=== PATIENT | female | born 1960 | race Caucasian/White ===

== ENCOUNTER 2020-07-02 13:25 | Emergency (ER) | payer OTHER ==
--- NOTE | 2020-07-02 13:54 | EDM.PDOC ---
ED HPI GENERAL MEDICAL PROBLEM - General Chief Complaint: Skin Complaint Stated Complaint: INFECTION INCISION Time Seen by Provider: 07/02/20 13:27 Source of Information: Reports: Patient History Limitations: Reports: No Limitations - History of Present Illness INITIAL COMMENTS - FREE TEXT/NARRATIVE: HISTORY AND PHYSICAL: History of present illness: The patient is a 60-year-old female who presents to the emergency room with complaints of infected lumbar incision from L4-L5 spinal fusion done on May 31, by Dr. Bello in [place]. The patient states that she had had no pain or redness to the incision site until 3 days ago when her noticed some swelling and the patient had increased pain. They started putting on an [id number] antibiotic and bandage. The home care nurse came by to release the patient, but after seeing the incision she advised the patient to go to the ED for treatment. She denies fever but has had increased fatigue and has been sleeping a lot. She had been taking her hydrocodone half a tablet 3-4 times a day prior to 3 days ago, but now is taking 1 tab 3-4 times a day. Patient's last Covid test was May 31 which was negative. Review of systems: As per history of present illness and below otherwise all systems reviewed and negative. Past medical history: As per history of present illness and as reviewed below otherwise noncontributory. Surgical history: As per history of present illness and as reviewed below otherwise noncontributory. Social history: See social history for further information Family history: As per history of present illness and as reviewed below otherwise noncontributory. Physical exam: General: Well developed and well nourished. Alert and orientated x 3. Nontoxic in appearance and in no acute distress. Vital signs are stable and have been reviewed by me. Nursing notes were reviewed. HEENT: Atraumatic, normocephalic, pupils equal and reactive bilaterally, negative for conjunctival pallor or scleral icterus, mucous membranes moist, throat clear, neck supple, nontender, trachea midline. No drooling or trismus noted. No meningeal signs. No hot potato voice noted. Lungs: Clear to auscultation bilaterally. No wheezes, rales, or rhonchi. Chest nontender. Normal work of breathing, no accessory muscles used. Heart: S1S2, regular rate and rhythm without overt murmur, gallops, or rubs. No JVD. No peripheral edema Abdomen: Soft, nondistended, nontender. Normoactive bowel sounds. Negative for masses or costovertebral tenderness. Skin: Lower back approximated surgical site with mild redness at the proximal end, redness, erythema and right side swelling at the distal end. the area is firm and tender. No fluctuation noted. Hematologic: No petechiae or purpra. Mucosa appropriate color and normal nail bed color and refill. Extremities: Atraumatic, moves all extremities per self without difficulty or deficits, negative for cords or calf pain. Neurovascular unremarkable. Neuro: Awake, alert, oriented. Cranial nerves II through XII unremarkable. Cerebellum unremarkable. Motor and sensory unremarkable throughout. Exam nonfocal. Psychiatric: Mood and affect are appropriate. Normal thought process. Answering questions appropriately. Notes: *This patient was seen and evaluated during the 2019 SARS-CoV-2 novel coronavirus pandemic period. Community viral transmission is ongoing at time of this encounter and the emergency department is operating under pandemic response procedures. After exam and discussion the patient is agreeable to blood work. I will not do a culture as there is no drainage and they have been putting an [id number] antibiotic on the site. The patient has increased pain and is crying. I was do a CT scan to assess for abscess. I have ordered IV fluids, Zofran, and Dilaudid for the patient. The CBC and CMP are unremarkable. The patient is resting now and rates her pain 3/10. Ct findings There is soft tissue thickening anteriorly at the L4-L5 disc space. There is also posterior ill-defined soft tissue/possible phlegmonous change. possible discitis or soft tissue infection cannot be excluded. No defined abscess seen. No bony destructive change No acute fractures or hardware fracture. Provider business continuity specialist for Dr. Mina has been called awaiting return call. Dr. Garcia from [facility], on-call for Dr. Mina returned my phone call and recommended Keflex, and ESR in CRP to have at the patient's follow up appointment. The patient is still having mild discomfort. I will give her half a milligram of Dilaudid at discharge. I have talked with the patient about today's findings, in addition to providing specific details for plan of care. Reassessment at the time of disposition demonstrates that the patient is in no acute distress. The patient is stable for discharge, counseling was provided and we discussed in great detail signs and symptoms that would prompt them to return to the Emergency Department. Medication, follow up and supportive care measures were reviewed and discussed. Voices understanding and is agreeable to plan of care. Denies any further questions or concerns at this time. Diagnostics:CBC, CMP, CT lumbar Therapeutics:IV fluids, Zofran, Dilaudid Prescription: Keflex 500mg TID for 5 days & Zofran 4mg every 6 hours as needed for nausea Impression: Surgical site infection Plan: 1. You were evaluated today on an emergent basis. Your redness, swelling and pain at your lumbar surgical site and was evaluated with exam, lab work and lumbar CT. Your lab work was WNL. The CT was did not rule out soft tissue infection. You were prescribed Keflex 500mg three times per day for five days. Be sure to go to your follow up appointment and ask your doctor if your antibiotic needs to be extended. You can take 1.5 to 2 of your hydrocodone tabs every 6 hours for pain. 2. You can alternate Tylenol and ibuprofen as needed for pain and fever management. 3. We encourage you to follow up with your primary care provider and/or recommended specialist in the next few days for re-evaluation and further care/management. 4. If your symptoms should worsen, new symptoms develop or any of the signs and symptoms we discussed should arise please return to the emergency room or call 911 (if needed). Definitive disposition and diagnosis as appropriate pending reevaluation and review of above. back Pain Score (Numeric/FACES): 6 - Related Data Allergies Allergy/AdvReac Type Severity Reaction Status Date / Time No Known Allergies Allergy Verified 07/02/20 13:50 Home Meds: Home Meds Ondansetron [Zofran ODT] 4 mg PO Q6H PRN #10 tab.dis 07/02/20 [Rx] cephALEXin [Keflex] 500 mg PO TID 5 Days #15 cap 07/02/20 [Rx] ED ROS GENERAL - Review of Systems Review Of Systems: Comprehensive ROS is negative, except as noted in HPI. ED EXAM, SKIN/RASH Exam: See Below (See dictation) Course - Vital Signs Last Recorded V/S: Last Vital Signs Temp 97.0 F 07/02/20 13:53 Pulse 69 07/02/20 17:41 Resp 16 07/02/20 17:41 BP 106/52 L 07/02/20 17:41 Pulse Ox 94 L 07/02/20 17:41 - Orders/Labs/Meds Orders: Active Orders 24 hr Category Date Time Status ESR [SEDIMENTATION RATE AUTO] [HEME] Stat Lab 07/02/20 14:39 Received Saline Lock Insert [OM.PC] Stat Oth 07/02/20 14:29 Ordered Labs: Laboratory Tests 07/02/20 07/02/20 07/02/20 Range/Units 14:39 14:39 14:39 WBC 5.87 (4.0-11.0) K/uL RBC 3.80 L (4.30-5.90) M/uL Hgb 11.9 L (12.0-16.0) g/dL Hct 35.6 L (36.0-46.0) % MCV 93.7 (80.0-98.0) fL MCH 31.3 (27.0-32.0) pg MCHC 33.4 (31.0-37.0) g/dL RDW Std Deviation 47.8 (28.0-62.0) fl RDW Coeff of Luh 14 (11.0-15.0) % Plt Count 175 (150-400) K/uL MPV 9.90 (7.40-12.00) fL Neut % (Auto) 57.4 (48.0-80.0) % Lymph % (Auto) 30.7 (16.0-40.0) % Ector % (Auto) 7.0 (0.0-15.0) % Eos % (Auto) 4.6 (0.0-7.0) % Baso % (Auto) 0.3 (0.0-1.5) % Neut # (Auto) 3.4 (1.4-5.7) K/uL Lymph # (Auto) 1.8 (0.6-2.4) K/uL Ector # (Auto) 0.4 (0.0-0.8) K/uL Eos # (Auto) 0.3 (0.0-0.7) K/uL Baso # (Auto) 0.0 (0.0-0.1) K/uL Nucleated RBC % 0.0 /100WBC Nucleated RBCs # 0 K/uL Sodium 140 (136-145) mmol/L Potassium 4.4 (3.5-5.1) mmol/L Chloride 105 (98-107) mmol/L Carbon Dioxide 24.4 (21.0-32.0) mmol/L BUN 12 (7.0-18.0) mg/dL Creatinine 0.9 (0.6-1.0) mg/dL Est Cr Clr Drug Dosing 60.67 mL/min Estimated GFR (MDRD) > 60.0 ml/min Glucose 204 H (74-106) mg/dL Calcium 9.0 (8.5-10.1) mg/dL Total Bilirubin 0.4 (0.2-1.0) mg/dL AST 13 L (15-37) IU/L ALT 25 (14-63) IU/L Alkaline Phosphatase 80 (46-116) U/L C-Reactive Protein 1.70 H (0.00-0.90) mg/dL Total Protein 6.4 (6.4-8.2) g/dL Albumin 3.3 L (3.4-5.0) g/dL Globulin 3.1 (2.6-4.0) g/dL Albumin/Globulin Ratio 1.1 (0.9-1.6) Meds: Medications Discontinued Medications Generic Name Dose Route Start Last Admin Trade Name Aidanq PRN Reason Stop Dose Admin Cephalexin 500 mg 07/02/20 17:39 07/02/20 17:50 Cephalexin 500 Mg Cap PO 07/02/20 17:40 500 mg ONETIME ONE Administration Hydromorphone HCl 1 mg 07/02/20 14:31 07/02/20 14:49 Hydromorphone 1 Mg/Ml Syringe IVPUSH 07/02/20 14:32 1 mg ONETIME ONE Administration Hydromorphone HCl 0.5 mg 07/02/20 17:34 07/02/20 17:39 Hydromorphone 2 Mg/Ml Syringe IVPUSH 07/02/20 17:35 0.5 mg ONETIME STA Administration Sodium Chloride 1,000 mls @ 150 mls/hr 07/02/20 14:30 07/02/20 15:04 Normal Saline IV 150 mls/hr ASDIRECTED SAHIL Administration Sodium Chloride 1,000 mls @ 150 mls/hr 07/02/20 15:05 07/02/20 15:30 Normal Saline IV 07/02/20 21:44 Not Given STAT STA Iopamidol 100 ml 07/02/20 15:44 07/02/20 15:45 Iopamidol 755 Mg/Ml 500 Ml Multipack Bottle IVPUSH 07/02/20 15:45 100 ml ONETIME ONE Administration Ondansetron HCl 4 mg 07/02/20 14:31 07/02/20 14:49 Ondansetron 4 Mg/2 Ml Sdv IVPUSH 07/02/20 14:32 4 mg ONETIME ONE Administration Sodium Chloride 10 ml 07/02/20 14:30 07/02/20 15:07 Sodium Chloride 0.9% 10 Ml Syringe FLUSH 10 ml ASDIRECTED PRN Administration Keep Vein Open Sodium Chloride 2.5 ml 07/02/20 14:30 07/02/20 15:07 Sodium Chloride 0.9% 2.5 Ml Syringe FLUSH 2.5 ml ASDIRECTED PRN Administration Keep Vein Open Departure - Departure Time of Disposition: 17:44 Disposition: Home, Self-Care 01 Condition: Good Clinical Impression: Skin infection - Discharge Information *PRESCRIPTION DRUG MONITORING PROGRAM REVIEWED*: Not Applicable *COPY OF PRESCRIPTION DRUG MONITORING REPORT IN PATIENT CRAIG: Not Applicable Prescriptions: cephALEXin [Keflex] 500 mg PO TID 5 Days #15 cap Ondansetron [Zofran ODT] 4 mg PO Q6H PRN #10 tab.dis PRN Reason: Nausea Instructions: Wound Care, Adult Referrals: Rosa Elena Desir NP [Primary Care Provider] - Forms: ED Department Discharge Additional Instructions: The following information is given to patients seen in the emergency department who are being discharged to home. This information is to outline your options for follow-up care. We provide all patients seen in our emergency department with a follow-up referral. The need for follow-up, as well as the timing and circumstances, are variable depending upon the specifics of your emergency department visit. If you don't have a primary care physician on staff, we will provide you with a referral. We always advise you to contact your personal physician following an emergency department visit to inform them of the circumstance of the visit and for follow-up with them and/or the need for any referrals to a consulting specialist. The emergency department will also refer you to a specialist when appropriate. This referral assures that you have the opportunity for follow-up care with a specialist. All of these measure are taken in an effort to provide you with optimal care, which includes your follow-up. Under all circumstances we always encourage you to contact your private physician who remains a resource for coordinating your care. When calling for follow-up care, please make the office aware that this follow-up is from your recent emergency room visit. If for any reason you are refused follow-up, please contact the [facility] Emergency Department at and asked to speak to the emergency department charge nurse. [facility] [address] [place] [id number] [facility] [address] [place] [id number] Plan: 1. You were evaluated today on an emergent basis. Your redness, swelling and pain at your lumbar surgical site and was evaluated with exam, lab work and lumbar CT. Your lab work was WNL. The CT was did not rule out soft tissue infection. You were prescribed Keflex 500mg three times per day for five days. Be sure to go to your follow up appointment and ask your doctor if your antibiotic needs to be extended. You can take 1.5 to 2 of your hydrocodone tabs every 6 hours for pain. 2. You can alternate Tylenol and ibuprofen as needed for pain and fever management. 3. We encourage you to follow up with your primary care provider and/or recommended specialist in the next few days for re-evaluation and further care/management. 4. If your symptoms should worsen, new symptoms develop or any of the signs and symptoms we discussed should arise please return to the emergency room or call 911 (if needed). Sepsis Event Note (ED) - Focused Exam Vital Signs: Vital Signs Temp Pulse Resp BP Pulse Ox 07/02/20 17:41 69 16 106/52 L 94 L 07/02/20 15:13 69 16 111/48 L 94 L 07/02/20 14:44 67 16 122/54 L 94 L 07/02/20 13:53 97.0 F 81 18 131/78 98 - My Orders Last 24 Hours: My Active Orders 07/02/20 14:29 Saline Lock Insert [OM.PC] Stat 07/02/20 14:39 ESR [SEDIMENTATION RATE AUTO] [HEME] Stat - Assessment/Plan Last 24 Hours: My Active Orders 07/02/20 14:29 Saline Lock Insert [OM.PC] Stat 07/02/20 14:39 ESR [SEDIMENTATION RATE AUTO] [HEME] Stat
[2020-07-02] MEDS ORDERED: Sodium Chloride 0.9% 1,000 ML IV SCH (14:30)
[2020-07-02] MEDS ORDERED: Sodium Chloride 0.9% 10 ML Syringe FLUSH PRN (14:30)
[2020-07-02] MEDS ORDERED: Sodium Chloride 0.9% 2.5 ML Syringe FLUSH PRN (14:30)
[2020-07-02] MEDS ORDERED: Ondansetron 4 MG/2 ML SDV IVPUSH ONE (14:31)
[2020-07-02] MEDS ORDERED: HYDROmorphone 1 MG/ML Syringe IVPUSH ONE (14:31)
[2020-07-02] MEDS ORDERED: Sodium Chloride 0.9% 1,000 ML IV STA (15:05)
[2020-07-02 15:06] LABS: BLOOD UREA NITROGEN,BUN 12 mg/dL (7.0-18.0); CARBON DIOXIDE,CO2 24.4 mmol/L (21.0-32.0); CHLORIDE,CL 105 mmol/L (98-107); GLUCOSE RANDOM 204 mg/dL (74-106); POTASSIUM,K 4.4 mmol/L (3.5-5.1); SODIUM,NA 140 mmol/L (136-145)
[2020-07-02] MEDS ORDERED: Iopamidol 755 MG/ML 500 ML Multipack Bottle IVPUSH ONE (15:44)
--- NOTE | 2020-07-02 16:48 | CT ---
INDICATION: Possible infected surgical site. L4-5 fusion 1 month ago. TECHNIQUE: CT images were acquired through the lumbar spine following intravenous contrast. COMPARISON: None. FINDINGS: Postsurgical changes of posterior instrumented and interbody fusion at L4-5 with paired pedicle screws and stabilizing rods. The hardware is intact and well seated. Beam hardening artifact secondary to surgical hardware limits evaluation, particularly of the spinal canal. Immature dorsolateral bone grafting. Standard positioning of the interbody graft without solid interbody fusion. L4 and L5 laminectomy. Ill-defined stranding within the posterior soft tissues at the surgical levels. No organized paraspinal fluid collection within limitations of artifact. No endplate destruction to suggest sequelae of discitis or osteomyelitis. The lumbar lordosis is preserved. Vertebral heights maintained. No acute fracture. L1-2: Trace retrolisthesis. Shallow posterior disc bulge. No spinal canal or neural foraminal narrowing. L2-3: Shallow circumferential disc bulge. No spinal canal or neural foraminal narrowing. L3-4: Shallow posterior disc bulge. [id number] bilateral facet arthropathy. No high-grade spinal canal narrowing. Mild left without right neural foraminal narrowing. L4-5: Postsurgical changes of posterior instrumented and interbody fusion, laminectomy, and bilateral medial facetectomy. Beam hardening artifact limits evaluation of the spinal canal. Suggested low-grade neural foraminal narrowing. L5-S1: Postsurgical changes of laminectomy. Advanced bilateral facet arthropathy. The spinal canal and neural foramina are adequately patent. Sacroiliac joint degenerative changes. Aortoiliac atherosclerotic calcifications. Colonic diverticulosis. IMPRESSION: 1. Postsurgical changes of combined interbody/posterior instrumented fusion at L4-5 as well as L4 and L5 laminectomy. The hardware is intact and well seated. No organized paraspinal fluid collection is visualized within limitations of hardware artifact. No endplate destruction to suggest sequelae of discitis or osteomyelitis. Correlation with inflammatory markers may be helpful. If there is continued clinical concern for infection, contrast-enhanced MRI could be obtained for further evaluation. 2. No acute fracture. Please note that all CT scans at this facility use dose modulation, iterative reconstruction, and/or weight-based dosing when appropriate to reduce radiation dose to as low as reasonably achievable. Dictated by Yoan Lombardi MD @ Jul 02 2020 5:17PM Signed by Dr. Yoan Lombardi @ Jul 02 2020 5:33PM
[2020-07-02] MEDS ORDERED: HYDROmorphone 2 MG/ML Syringe IVPUSH STA (17:34)
[2020-07-02] MEDS ORDERED: Cephalexin 500 MG Cap PO ONE (17:39)
== END 2020-07-02 17:53 | disposition home or self-care (01) ==
LOC: MW.ED 13:25
DX: T81.40XA Infection following a procedure, unspecified, initial encounter (principal); Z79.899 Other long term (current) drug therapy
CPT/HCPCS: 36415; 72132; 80053; 85025; 85652; 86140; 96374; 96375; 99284; A9270; J1170; J2405; J7030; Q9967; 99283

== ENCOUNTER 2024-12-02 10:32 | Emergency (ER) | payer MEDICARE | END 2024-12-02 11:16 | disposition home or self-care (01) | LOC: MW.ED 10:32 | DX: T16.1XXA Foreign body in right ear, initial encounter (principal); I10 Essential (primary) hypertension; E78.00 Pure hypercholesterolemia, unspecified; W44.9XXA Unspecified foreign body entering into or through a natural orifice, initial encounter | CPT/HCPCS: 69200; 99282; 99282-25 ==